=== PATIENT | female | born 2000 | race Caucasian/White ===

== ENCOUNTER 2021-04-26 18:04 | Emergency (ER) | payer SELFPAY ==
[~2021-04-26] VITALS: Ht 152.4 cm; Wt 72.7 kg
[2021-04-26 18:05] VITALS: BP 121/70
== END 2021-04-26 19:58 | disposition left against medical advice (07) ==
LOC: M ED 18:04
DX: Z53.29 Procedure and treatment not carried out because of patient's decision for other reasons (principal)

== ENCOUNTER 2021-12-22 00:44 | Inpatient (IN) | payer OTHER, SELFPAY ==
[~2021-12-22] VITALS: Ht 162.6 cm; Wt 73.4 kg
[2021-12-22] VITALS (12 sets, daily range): BP systolic 119–176; BP diastolic 44–126
[2021-12-22] MEDS ORDERED: OXYTOCIN DRIP 30 UNITS in IV 1 EA IV STA (00:48)
[2021-12-22] MEDS ORDERED: LACTATED RINGER'S 1000 ML IV STA (00:51)
[2021-12-22] MEDS ORDERED: CARBOPROST TROMETHAMINE 250 MCG/ML AMP IM PRN (00:55)
[2021-12-22] MEDS ORDERED: OXYTOCIN INJ 10 UNITS/ML VIAL (J2590) IM PRN (00:55)
[2021-12-22] MEDS ORDERED: OXYTOCIN DRIP 30 UNITS in IV 1 EA IV PRN ×6 (00:55)
[2021-12-22] MEDS ORDERED: LR 1,000 ML IV SCH ×2 (00:55→02:25)
[2021-12-22] MEDS ORDERED: METHYLERGONOVINE MALEATE 0.2 MG/ML VIAL (J2210) IM PRN (00:55)
[2021-12-22] MEDS ORDERED: TRANEXAMIC ACID INJection 1,000 MG in NS 100 ML IV PRN (00:55)
[2021-12-22] MEDS ORDERED: OXYTOCIN INJ 10 UNITS/ML VIAL (J2590) IV PRN (00:55)
[2021-12-22] MEDS ORDERED: OXYTOCIN INJ 10 UNITS/ML VIAL (J2590) As Ordered ONE (00:55)
[2021-12-22] MEDS ORDERED: LIDOCAINE 1% MDV 20ML VIAL INFIL PRN (00:55)
[2021-12-22 01:11] LABS: HEMATOCRIT 35.5 % (36.0-47.0); HEMOGLOBIN 11.2 g/dl (12.0-15.5); MEAN CORPUSCULAR HEMOGLOBIN 23.7 pg (27.0-33.0); MEAN CORPUSCULAR HGB CONC 31.5 g/dl (32.0-36.5); MEAN CORPUSCULAR VOLUME 75.2 fl (80.0-96.0); PLATELET COUNT, AUTOMATED 314 10^3/uL (150-450); RED BLOOD COUNT 4.72 10^6/uL (4.00-5.40); WHITE BLOOD COUNT 14.3 10^3/uL (4.0-10.0)
[2021-12-22] MEDS ORDERED: ONDANSETRON 4MG/2ML VIAL IV PRN (02:25)
[2021-12-22] MEDS ORDERED: ANUSOL HC CREAM 30GM TOP PRN (02:25)
[2021-12-22] MEDS ORDERED: ACETAMINOPHEN 500 MG TAB PO PRN (02:25)
[2021-12-22] MEDS ORDERED: RHOGAM 300 MCG (1500 IU) INJ (J2790) IM SCH (02:25)
[2021-12-22] MEDS ORDERED: DIBUCAINE 1% OINTMENT 30GM TOP PRN (02:25)
[2021-12-22] MEDS ORDERED: IBUPROFEN 600MG TAB PO PRN (02:25)
[2021-12-22] MEDS ORDERED: METHYLERGONOVINE MALEATE 0.2 MG TAB PO PRN (02:25)
[2021-12-22] MEDS ORDERED: ACETAMINOPHEN TAB 650MG DOSE (2X325MG) PO PRN (02:25)
[2021-12-22] MEDS ORDERED: OXYTOCIN DRIP 30 UNITS in IV 1 EA IV SCH (02:25)
[2021-12-22 04:39] LABS: AMPHETAMINES URINE REFLEX NEGATIVE (NEGATIVE); BARBITURATES URINE REFLEX NEGATIVE (NEGATIVE); BENZODIAZEPINES URINE REFLEX NEGATIVE (NEGATIVE); CANNABINOIDS URINE REFLEX NEGATIVE (NEGATIVE); COCAINE METABOLITE URINE REFLE NEGATIVE (NEGATIVE); METHADONE URINE REFLEX NEGATIVE (NEGATIVE); OPIATES URINE REFLEX NEGATIVE (NEGATIVE); PHENCYCLIDINE URINE REFLEX NEGATIVE (NEGATIVE)
[2021-12-22] MEDS: PRENATAL VITAMINS CHEWABLE TABLET PO SCH (08:40)
[2021-12-22] MEDS: DOCUSATE SODIUM 100MG CAPSULE PO SCH ×2 (08:40→21:08)
[2021-12-22] MEDS ORDERED: STUACAP PO (09:15)
[2021-12-22] MEDS ORDERED: HOME MED LIST COMPLETE! XX SCH (09:20)
[2021-12-22] MEDS: IBUPROFEN 800 MG TAB PO PRN (21:10)
[2021-12-23] MEDS: IBUPROFEN 800 MG TAB PO PRN (05:51)
[2021-12-23 06:00] VITALS: BP 119/69
[2021-12-23] MEDS: DOCUSATE SODIUM 100MG CAPSULE PO SCH (08:16)
[2021-12-23] MEDS: PRENATAL VITAMINS CHEWABLE TABLET PO SCH (08:16)
[2021-12-23] MEDS ORDERED: IBUP-1022 PO (09:02)
[2021-12-23] MEDS ORDERED: COLA100C5 PO (09:02)
[2021-12-23] MEDS ORDERED: PRENCHW PO (09:02)
[2021-12-24] MEDS ORDERED: MEASLES,MUMPS,RUBELLA VACCINE INJ (MMR-II) (90707) SC ONE (09:00)
== END 2021-12-23 11:05 | disposition home or self-care (01) | DRG 807 ==
LOC: M LDO 00:44 → M LDI 00:48 → M OBS 04:30
PROVIDERS: ADMIT Obstetrics & Gynecology; ATTEND Obstetrics & Gynecology
PROC: 10E0XZZ Delivery of Products of Conception, External Approach (ICD-10-PCS; principal; 2021-12-22)
DX: O80 Encounter for full-term uncomplicated delivery (principal); Z37.0 Single live birth; Z3A.39 39 weeks gestation of pregnancy

== ENCOUNTER → 2022-01-23 | Outpatient (REF) | payer OTHER ==
[~2022-01-23] MED LIST: COLA100C5 PO; IBUP-1022 PO; PRENCHW PO; STUACAP PO
== END ==
LOC: M LAB REF 09:19
PROVIDERS: ATTEND Physician Assistant
DX: N30.01 Acute cystitis with hematuria (principal)